=== PATIENT | female | born 1985 | race Caucasian/White ===

== ENCOUNTER 2017-05-20 18:07 | Emergency (ER) | payer BC ==
[~2017-05-20] VITALS: Ht 167.6 cm; Wt 71.0 kg
[~2017-05-20 18:07] MED LIST: PRENTAB26 PO
[2017-05-20 18:17] VITALS: TEMP 36.9; Ht 167.6 cm; Wt 71.0 kg
[2017-05-20] MEDS ORDERED: SODIUM CHLORIDE 0.9% 1000ML 1,000 ML IV STA (18:28)
[2017-05-20] MEDS ORDERED: KETOROLAC TROMETHAMINE 30 MG/ML VIAL IV STA (18:28)
--- NOTE | 2017-05-20 18:48 | EMERGENCY ROOM VISIT NOTE ---
History Report prepared by David: Travis Philippe Under the Supervision of: Dr. Prakash Fraser M.D. First contact with patient: 18:20 Chief Complaint: ARM PAIN Stated Complaint: L ARM PAIN History of Present Illness The patient is a 31 year old female who presents to the Emergency Room with complaints of intermittent chest pain starting this morning around 1000 this morning and arm pain starting around 1630. She states that the chest pressure would last a few minutes, and then it would go away for around a half hour, and she notes that she has been very anxious today. She states that around 1630 she had a jolt down her arm, and after that she has been having some left arm pain and tingling. She states that the pain started while she was just driving. The patient denies any shortness of breath, fever, chills, cough, congestion, nausea , and vomiting. She states that she does not have any active medical problems, and she is currently on control. She denies any smoking, recent long plane rides, recent surgery, or leg swelling. The patient does not use drugs, drink alcohol, she is not , and her last period was two weeks ago. The patient has a family history of blood clots. Source of History: patient Onset: 1000 Position: chest, arm (left) Quality: pressure Timing: intermittent Associated Symptoms: No fevers, No chills, No cough, No SOB, No nausea, No vomiting Review of Systems See HPI for pertinent positives and negatives. A total of ten systems were reviewed and were otherwise negative. Past Medical & Surgical Medical Problems: (1) Anxiety (2) control Family History Blood clots Social History Marital Status: Housing Status: lives with family Occupation Status: employed Current/Historical Medications Scheduled Control Pills ( Control Pills), 1 TAB PO DAILY Allergies Coded Allergies: Amoxicillin (Verified Allergy, RASH, 05/18/10) Physical Exam Vital Signs Date Time Temp Pulse Resp B/P (MAP) Pulse Ox O2 Delivery O2 Flow Rate FiO2 05/20/17 20:26 91 18 137/88 99 05/20/17 19:04 88 05/20/17 19:03 91 16 150/92 98 Room Air 05/20/17 19:02 97 Room Air 05/20/17 18:17 36.9 104 16 172/92 99 Room Air Physical Exam GENERAL: Awake, alert, well-appearing, in no distress HENT: Normocephalic, atraumatic. Oropharynx unremarkable. EYES: Normal conjunctiva. Sclera non-icteric. NECK: Supple. No nuchal rigidity. FROM. No JVD. RESPIRATORY: Clear to auscultation. CARDIAC: Regular rate, normal rhythm. Extremities warm and well perfused. Pulses equal. ABDOMEN: Soft, non-distended. No tenderness to palpation. No rebound or guarding. No masses. RECTAL: Deferred. MUSCULOSKELETAL: Chest examination reveals no tenderness. The back is symmetrical on inspection without obvious abnormality. There is no CVA tenderness to palpation. No joint edema. LOWER EXTREMITIES: Calves are equal size bilaterally and non-tender. No edema. No discoloration. NEURO: Normal sensorium. No sensory or motor deficits noted. SKIN: No rash or jaundice noted. Medical Decision & Procedures ER Provider Diagnostic Interpretation: Radiology results as stated below per my review and radiologist interpretation: CHEST ONE VIEW PORTABLE CLINICAL HISTORY: 31 years-old Female presenting with CHEST PAIN. TECHNIQUE: Portable upright AP view of the chest was obtained. COMPARISON: None. FINDINGS: Cardiomediastinal silhouette normal. Lungs and pleural spaces clear. Osseous structures normal. Upper abdomen normal. IMPRESSION: 1. No acute cardiopulmonary disease. Electronically signed by: Dru Sandoval M.D. 05/20/2017 7:00 PM Dictated Date/Time: 05/20/2017 6:59 PM Laboratory Results 05/20/17 19:00 Red Blood Count 4.59, Mean Corpuscular Volume 94.1, Mean Corpuscular Hemoglobin 32.7, Mean Corpuscular Hemoglobin Concent 34.7, Mean Platelet Volume 11.1, Neutrophils (%) (Auto) 76.5, Lymphocytes (%) (Auto) 17.2, Monocytes (%) (Auto) 5.3, Eosinophils (%) (Auto) 0.5, Basophils (%) (Auto) 0.3, Neutrophils # (Auto) 7.81, Lymphocytes # (Auto) 1.75, Monocytes # (Auto) 0.54, Eosinophils # (Auto) 0.05, Basophils # (Auto) 0.03 05/20/17 19:00 Test 05/20/17 19:00 White Blood Count 10.20 K/uL (4.8-10.8) Red Blood Count 4.59 M/uL (4.2-5.4) Hemoglobin 15.0 g/dL (12.0-16.0) Hematocrit 43.2 % (37-47) Mean Corpuscular Volume 94.1 fL (80-100) Mean Corpuscular Hemoglobin 32.7 pg (25-34) Mean Corpuscular Hemoglobin Concent 34.7 g/dl (32-36) Platelet Count 202 K/uL (130-400) Mean Platelet Volume 11.1 fL (7.4-10.4) Neutrophils (%) (Auto) 76.5 % Lymphocytes (%) (Auto) 17.2 % Monocytes (%) (Auto) 5.3 % Eosinophils (%) (Auto) 0.5 % Basophils (%) (Auto) 0.3 % Neutrophils # (Auto) 7.81 K/uL (1.4-6.5) Lymphocytes # (Auto) 1.75 K/uL (1.2-3.4) Monocytes # (Auto) 0.54 K/uL (0.11-0.59) Eosinophils # (Auto) 0.05 K/uL (0-0.5) Basophils # (Auto) 0.03 K/uL (0-0.2) RDW Standard Deviation 42.4 fL (36.4-46.3) RDW Coefficient of Variation 12.4 % (11.5-14.5) Immature Granulocyte % (Auto) 0.2 % Immature Granulocyte # (Auto) 0.02 K/uL (0.00-0.02) D-Dimer 460 ug/L FEU (0-500) Anion Gap 10.0 mmol/L (3-11) Est Creatinine Clear Calc Drug Dose 89.1 ml/min Estimated GFR () 105.8 Estimated GFR (Non- 91.3 BUN/Creatinine Ratio 13.7 (10-20) Calcium Level 9.3 mg/dl (8.5-10.1) Total Bilirubin 0.5 mg/dl (0.2-1) Direct Bilirubin 0.1 mg/dl (0-0.2) Aspartate Amino Transf (AST/SGOT) 14 U/L (15-37) Alanine Aminotransferase (ALT/SGPT) 20 U/L (12-78) Alkaline Phosphatase 64 U/L (45-117) Troponin I < 0.015 ng/ml (0-0.045) Total Protein 8.3 gm/dl (6.4-8.2) Albumin 3.9 gm/dl (3.4-5.0) Lipase 152 U/L (73-393) Human Chorionic Gonadotropin, Qual NEG (NEG) Laboratory results reviewed by me Medications Administered Medications (Trade) Dose Ordered Sig/Tasha Route Start Time Stop Time Status Last Admin Dose Admin Sodium Chloride 1,000 ml @ 999 mls/hr Q1H1M STAT IV 05/20/17 18:28 05/20/17 19:28 DC 05/20/17 19:01 999 MLS/HR Ketorolac Tromethamine (Toradol Inj) 30 mg NOW STAT IV 05/20/17 18:28 05/20/17 18:36 DC 05/20/17 19:01 30 MG ECG Indication: chest pain Rate (beats per minute): 86 Rhythm: normal sinus Findings: no acute ischemic change, other (normal axis) ED Course 1819: The patient was evaluated in room A3. A complete history and physical exam was performed. 1827: Toradol 30mg IV, Sodium Chloride 1000 ml @ 999 mls/hr IV 2017: I reevaluated the patient. Discussed results and discharge instructions: She verbalized understanding and agreement. The patient is ready for discharge. Medical Decision I reviewed the patient's past medical history, medications, and the nursing notes as described above. Differential Diagnoses include: pneumonia, bronchitis, ACS, PE, musculoskeletal strain, anxiety, panic attack He patient is a 31-year-old woman with a past medical history of anxiety as well as a family history and her father of unprovoked DVT/PE presents emergency department with acute onset chest pain that began this morning that has been intermittent for 2 minute episodes with very minute respite since onset and had subsequent evolution of her symptoms with arm pain that his been constant since 4 PM per history of present illness. Arrival the patient is relatively well- appearing, in no acute distress, afebrile, heart rate 100s but otherwise with stable vital signs. EKG unremarkable. Trop negative in the setting of > 6 hours of sx. Heart score 1 , low risk. ACS not likely. D-dimer negative, thus PE not likely. CXR negative. Labs otherwise unremarkable including WBC wnl. Patient feeling improved. Unclear cause of patient's sx at this time but could be 2/2 patient's anxiety. Findings and plan for follow-up reviewed with patient. Patient agreeable and d/c 'd per discharge instructions. Medication Reconcilliation Current Medication List: was personally reviewed by me Blood Pressure Screening Patient's blood pressure: Elevated blood pressure Blood pressure disposition: Elevated BP felt to be situational Impression Primary Impression: Arm pain, left Additional Impression: Chest pain of uncertain etiology Scribe Attestation The scribe's documentation has been prepared under my direction and personally reviewed by me in its entirety. I confirm that the note above accurately reflects all work, treatment, procedures, and medical decision making performed by me. Departure Information Dispostion Home / Self-Care Forms HOME CARE DOCUMENTATION FORM, IMPORTANT VISIT INFORMATION Patient Instructions ED Chest Pain Atypical Unkn Cause, My [facility] Additional Instructions Please follow up with your primary care physician in the next 1-3 days for re- evaluation. The cause of your symptoms is unclear at this time. Otherwise, your exam, EKG, chest xray, and lab results did not show signs of an emergent condition at this time. Return to the emergency department for worsening symptoms as described in the accompanying instructions. Problem Qualifiers
--- NOTE | 2017-05-20 19:01 | DIAGNOSTIC IMAGING REPORT ---
CHEST ONE VIEW PORTABLE CLINICAL HISTORY: 31 years-old Female presenting with CHEST PAIN. TECHNIQUE: Portable upright AP view of the chest was obtained. COMPARISON: None. FINDINGS: Cardiomediastinal silhouette normal. Lungs and pleural spaces clear. Osseous structures normal. Upper abdomen normal. IMPRESSION: 1. No acute cardiopulmonary disease. Electronically signed by: Dru Sandoval M.D. 05/20/2017 7:00 PM Dictated Date/Time: 05/20/2017 6:59 PM
[2017-05-20 19:02] VITALS: O2SAT 97
[2017-05-20] MEDS ORDERED: BCPILLS PO (19:18)
[2017-05-20 19:19] LABS: BASO % 0.3 %; BASO ABS # 0.03 K/uL (0-0.2); COMPLETE YES; EOS % 0.5 %; HEMATOCRIT 43.2 % (37-47); IG% 0.2 %; LYMPH % 17.2 %; LYMPH ABS # 1.75 K/uL (1.2-3.4); MEAN CELL VOLUME 94.1 fL (80-100); MEAN CORPUSCULAR HEMOGLOBIN 32.7 pg (25-34); MEAN CORPUSCULAR HGB CONC 34.7 g/dl (32-36); MEAN PLATELET VOLUME 11.1 fL (7.4-10.4); MONO % 5.3 %; NEUT % 76.5 %; PLATELET COUNT 202 K/uL (130-400); RED BLOOD COUNT 4.59 M/uL (4.2-5.4)
[2017-05-20 19:39] LABS: ALT/SGPT 20 U/L (12-78); BLOOD UREA NITROGEN 11 mg/dl (7-18); BUN/CREATININE RATIO 13.7 (10-20); CALCIUM 9.3 mg/dl (8.5-10.1); CARBON DIOXIDE 25 mmol/L (21-32); CHLORIDE 104 mmol/L (98-107); CREATININE 0.84 mg/dl (0.60-1.20); GLUCOSE 107 mg/dl (70-99); POTASSIUM 3.6 mmol/L (3.5-5.1); SODIUM 140 mmol/L (136-145)
[2017-05-20 19:44] LABS: ALKALINE PHOSPHATASE 64 U/L (45-117); AST/SGOT 14 U/L (15-37)
[2017-05-20 19:49] LABS: PREG INTERNAL NEGATIVE QC NEG CLEAR BACKGROUND; PREG INTERNAL POSITIVE QC POS CONTROL LINE
[2017-05-20 20:26] VITALS: BP 137/88; PULSE 91; O2SAT 99
== END 2017-05-20 20:25 | disposition home or self-care (01) ==
LOC: C.EDB 18:08 → C.EDA 20:25
DX: M79.602 Pain in left arm (principal); R07.9 Chest pain, unspecified; F41.9 Anxiety disorder, unspecified; Z79.3 Long term (current) use of hormonal contraceptives; Z83.2 Family history of diseases of the blood and blood-forming organs and certain disorders involving the immune mechanism

== ENCOUNTER 2020-07-25 09:38 | Inpatient (IN) ==
[2020-07-25] MEDS ORDERED: OXYTOCIN 30 UNITS/500 ML BAG IV PRN ×3 (10:54→21:00)
[2020-07-25] MEDS ORDERED: miSOPROStoL 50 MCG TAB PO SCH (11:00)
--- NOTE | 2020-07-25 11:01 | History & Physical Report ---
Date of Service July 25, 2020 Assessment & Plan (1) Pre-eclampsia affecting , antepartum: 34-year-old -0-0-1 at 38 weeks of gestation, presenting for IOL at term, elevated Blood pressure and proteinuria in office VSS Afebrile Asymptomatic FHR reassuring GBS pending, h/o GBS in 2012, received Cefazolin with no h/o reaction Cervix unfavorable, intolerance to VE Plan to admit, monitor, labs, PO Cytotec for cervical ripening All questions were answered Admission and Anticipated Discharge Date Admission Date: July 25, 2020 History of Present Illness Primary Care Provider: NO PCP Patient 34-year-old -0-0-1 at 38 weeks of gestation. She was in the office yesterday and her blood pressure was elevated and urine dip showed 2+ protein. She was sent to the lab for blood work and urine PC ratio. Blood work was normal including liver enzymes and platelets but urine PC ratio was elevated at 0.7. She was sent in today for induction of labor at term. She has no complaints, denies headache, change in her vision, epigastric or right upper quadrant pain, nausea, vomiting. She denies contractions, leakage of fluid or vaginal bleeding. She reports good movements. She denies symptoms of COVID nor recent contact. Allergies Allergy/AdvReac Type Severity Reaction Status Date / Time amoxicillin Allergy RASH Verified 05/18/10 22:44 nickel AdvReac Rash Verified 07/25/20 10:12 Home Medications Medication Instructions Recorded Confirmed Type Control Pills 1 tab PO DAILY #0 tab 05/20/17 History Patient History Medical History No known health problems Social History Preferred Language: Lithuanian Communication Ability: Effective Maxillofacial Prosthodontist Required: No Beliefs That Will Affect Care: None Current Living Situation: Spouse and Family Other Information That Helps Us Care for You: No Assistive Devices: None OB History Ectopic in 2009 FT in 2012 [employer] History No h/o STD's Review of Systems All systems reviewed & are unremarkable except as noted in HPI & below Physical Exam Constitutional: WD/WN, vitals as above well developed and well nourished Comfortable Gastrointestinal (Abdomen): normal bowel sounds, soft, nontender, no hepatosplenomegaly (Gravid) Genitourinary: normal external appearance OB Exam Abdomen: + vertex Manual OB Exam: + cervical dilation 2 cm, + cervical effacement 30% and + station high OB Exam Monitor Tracing: + external uterine monitor used and + category I Results & Data ([facility]) Vital Signs (Past 12 Hours) Vital Signs Temp Pulse Resp BP 07/25/20 10:55 75 133/89 07/25/20 10:41 90 130/88 07/25/20 10:26 85 131/110 H 07/25/20 10:10 36.9 C 85 20 134/89 07/25/20 09:49 93 H 133/87
[2020-07-25] MEDS: LACTATED RINGER'S 1,000 ML IV PRN ×3 (11:17→19:11)
[2020-07-25 11:18] LABS: Hematocrit (blood only) 41.1 % (37-47); Hemoglobin 14.3 g/dL (12.0-16.0); Mean Corpuscular Hemoglobin 33.6 pg (25-34); Mean Corpuscular Hgb Conc 34.8 g/dL (32-36); Mean Corpuscular Volume 96.5 fL (80-100); Mean Platelet Volume 12.4 fL (7.4-10.4); Platelet Count 164 K/uL (130-400); RDW Coefficient of Variation 13.3 % (11.5-14.5); RDW Standard Deviation 46.3 fL (36.4-46.3); Red Blood Count 4.26 M/uL (4.2-5.4); White Blood Count 13.26 K/uL (4.8-10.8)
[2020-07-25] MEDS ORDERED: BUTORPHANOL TARTRATE 1 MG/ML VIAL IV PRN (11:18)
[2020-07-25 11:45] LABS: Alanine Aminotransferase 27 U/L (12-78); Albumin Level 2.8 gm/dl (3.4-5.0); Aspartate Aminotransferase 20 U/L (15-37); Blood Urea Nitrogen 13 mg/dl (7-18); Calcium 9.5 mg/dl (8.5-10.1); Carbon Dioxide 21 mmol/L (21-32); Chloride 108 mmol/L (98-107); Est GFR (African American) 106.7; Est GFR (Non-African American) 92.1; Glucose 83 mg/dl (70-99); Potassium 3.9 mmol/L (3.5-5.1); Sodium 137 mmol/L (136-145)
[2020-07-25 11:48] LABS: Albumin Globulin Ratio 0.7 (0.9-2); Alkaline Phosphatase 171 U/L (45-117); Bilirubin,Total 0.3 mg/dl (0.2-1); Globulin 4.3 gm/dl (2.5-4.0); Total Protein 7.1 gm/dl (6.4-8.2)
[2020-07-25] MEDS: ceFAZolin 2000MG 2,000 MG/15 ML SYR IV SCH ×2 (14:34→19:00)
[2020-07-25] MEDS ORDERED: BUPIVACAINE 0.25% 30 ML VIAL ONE ×2 (15:03→19:25)
[2020-07-25] MEDS ORDERED: SODIUM CHLORIDE 0.9% INJ 10 ML VIAL ONE ×2 (15:03→19:25)
[2020-07-25] MEDS ORDERED: ePHEDrine sulfate 50 MG/ML AMP ONE (15:03)
[2020-07-25] MEDS ORDERED: fentaNYL citrate 100 MCG/2 ML VIAL ONE ×2 (15:04→19:25)
[2020-07-25] MEDS ORDERED: fentaNYL 2MCG/ML ROPIVACAINE 1.25MG/ML 100 ML BAG EPI ONE (15:04)
--- NOTE | 2020-07-25 15:07 | Anesthesiology Consultation ---
Date of Service July 25, 2020 Assessment & Plan Chart Review Chart Review: Acceptable Risk for Surgery, Patient NOT seen in Pre Admission Testing and Acceptable Risk for Labor Epidural Consults Requested none ASA ASA2 Proposed Anesthesia Anesthesia Type: Labor Epidural and CSE History Height/Weight Height: 5 ft 5 in Weight: 87.1 kg Allergies Allergy/AdvReac Type Severity Reaction Status Date / Time amoxicillin Allergy RASH Verified 05/18/10 22:44 nickel AdvReac Rash Verified 07/25/20 10:12 Medications Home Medications Medication Instructions Recorded Confirmed Last Taken PNV,calcium [id number] acid 1 tab PO DAILY 07/25/20 07/25/20 07/24/20 21:00 [ Vitamin Plus Low Iron] 1 Active Medications Generic Name Dose Route Start Last Admin Trade Name Freq PRN Reason Stop Dose Admin Cefazolin Sodium 2,000 mg in 15 mls @ 3.75 mls/min 07/25/20 11:00 07/25/20 14:34 Ancef 2000mg IV 08/04/20 10:59 3.75 mls/min Q8H DYLON Administration Lactated Ringer's 1,000 mls @ 150 mls/hr 07/25/20 10:54 07/25/20 14:37 Lr IV 07/27/20 10:53 999 mls/hr .Q6H40M PRN Infusion L&D Protocol Protocol Past Medical History Medical History No known health problems Exercise / Class Metabolic Activity II 4-5 Yardwork/Stairs/Walk up hill Past Surgical History Surgical History H/O wisdom tooth extraction (~07/2001) Past Anesthesia History No Hx of Anesthesia Complications and No Family Hx of Anesthesia Complications History of PONV No Hx of PONV and No Hx of Motion Sickness Social History Smoking Status: Never smoker Do You Dip or Chew Tobacco: No Hx Alcohol Use: No Hx Substance Use: No substance use type: does not use Physical Exam Vital Signs Last Vital Signs Temp 36.8 C 07/25/20 14:13 Pulse 76 07/25/20 14:11 Resp 20 07/25/20 14:13 BP 135/74 07/25/20 14:11 Testing Laboratory Results 07/25/20 11:06 07/25/20 11:06
[2020-07-25] MEDS ORDERED: PROMETHAZINE HCL 25 MG in SODIUM CHLORIDE 0.9% 50 ML IV PRN (15:44)
[2020-07-25] MEDS ORDERED: ePHEDrine sulfate 50 MG/ML AMP IV PRN (15:44)
[2020-07-25] MEDS ORDERED: diphenhydrAMINE 50 MG/ML VIAL IV PRN (15:44)
[2020-07-25] MEDS ORDERED: ONDANSETRON INJ 2 MG/ML 2 ML VIAL IV PRN (15:44)
[2020-07-25] MEDS ORDERED: fentaNYL 2MCG/ML ROPIVACAINE 1.25MG/ML 100 ML BAG EPI PRN (15:44)
[2020-07-25] MEDS ORDERED: NALOXONE HCL 0.4 MG/1 ML VIAL/CARP IV PRN (15:44)
[2020-07-25] MEDS ORDERED: NALOXONE HCL 1 MG in SODIUM CHLORIDE 0.9% 1000ML 1,000 ML IV PRN (15:44)
--- NOTE | 2020-07-25 16:10 | Obstetrical Progress Note ---
Date of Service July 25, 2020 Assessment & Plan Admission and Anticipated Discharge Date Admission Date: July 25, 2020 Subjective Patient is reevaluated She received PO Cytotec ay 1115 and SROM ed 14 15, clear Received epidural and comfortable now VE; 3-4 cm/ 60%/ -2, anterior fontanelle at 1 o'clock position FHR categ I [place]: ctx q 3-5 min Labs normal Continue to monitor closely Augment with low dose Pitocin Lab Results 07/25/20 07/25/20 07/25/20 Range/Units 11:03 11:03 11:06 WBC 13.26 H (4.8-10.8) K/uL RBC 4.26 (4.2-5.4) M/uL Hgb 14.3 (12.0-16.0) g/dL Hct 41.1 (37-47) % MCV 96.5 (80-100) fL MCH 33.6 (25-34) pg MCHC 34.8 (32-36) g/dL RDW Std Deviation 46.3 (36.4-46.3) fL RDW Coeff of Tushar 13.3 (11.5-14.5) % Plt Count 164 (130-400) K/uL MPV 12.4 H (7.4-10.4) fL Sodium (136-145) mmol/L Potassium (3.5-5.1) mmol/L Chloride (98-107) mmol/L Carbon Dioxide (21-32) mmol/L Anion Gap (3-11) BUN (7-18) mg/dl Creatinine (0.6-1.2) mg/dl Est Cr Clr Drug Dosing Est GFR ( Amer) Est GFR (Non-Af Amer) BUN/Creatinine Ratio (10-20) Glucose (70-99) mg/dl Calcium (8.5-10.1) mg/dl Total Bilirubin (0.2-1) mg/dl AST (15-37) U/L ALT (12-78) U/L Alkaline Phosphatase (45-117) U/L Total Protein (6.4-8.2) gm/dl Albumin (3.4-5.0) gm/dl Globulin (2.5-4.0) gm/dl Albumin/Globulin Ratio (0.9-2) COVID-19 Eval [facility] SARS-CoV-2, RNA, NAAT NEGATIVE (NEGATIVE) 07/25/20 Range/Units 11:06 WBC (4.8-10.8) K/uL RBC (4.2-5.4) M/uL Hgb (12.0-16.0) g/dL Hct (37-47) % MCV (80-100) fL MCH (25-34) pg MCHC (32-36) g/dL RDW Std Deviation (36.4-46.3) fL RDW Coeff of Tushar (11.5-14.5) % Plt Count (130-400) K/uL MPV (7.4-10.4) fL Sodium 137 (136-145) mmol/L Potassium 3.9 (3.5-5.1) mmol/L Chloride 108 H (98-107) mmol/L Carbon Dioxide 21 (21-32) mmol/L Anion Gap 8.0 (3-11) BUN 13 (7-18) mg/dl Creatinine 0.82 (0.6-1.2) mg/dl Est Cr Clr Drug Dosing Not Reportable Est GFR ( Amer) 106.7 Est GFR (Non-Af Amer) 92.1 BUN/Creatinine Ratio 16.0 (10-20) Glucose 83 (70-99) mg/dl Calcium 9.5 (8.5-10.1) mg/dl Total Bilirubin 0.3 (0.2-1) mg/dl AST 20 (15-37) U/L ALT 27 (12-78) U/L Alkaline Phosphatase 171 H (45-117) U/L Total Protein 7.1 (6.4-8.2) gm/dl Albumin 2.8 L (3.4-5.0) gm/dl Globulin 4.3 H (2.5-4.0) gm/dl Albumin/Globulin Ratio 0.7 L (0.9-2) COVID-19 Eval Order SARS-CoV-2, RNA, NAAT (NEGATIVE) Results & Data ([facility]) Vital Signs (Past 12 Hours) Vital Signs Temp Pulse Resp BP Pulse Ox 07/25/20 16:05 79 97 07/25/20 16:01 75 116/58 L 07/25/20 16:00 83 98 07/25/20 15:55 76 112/58 L 98 07/25/20 15:50 85 97 07/25/20 15:45 89 97 07/25/20 15:44 80 119/55 L 07/25/20 15:43 82 118/60 07/25/20 15:40 89 125/61 98 07/25/20 15:36 82 138/75 07/25/20 15:35 89 134/85 98 07/25/20 15:30 89 99 07/25/20 15:29 93 H 150/85 H 07/25/20 15:25 100 H 153/81 H 100 07/25/20 15:21 93 H 186/79 H 07/25/20 15:20 97 H 100 07/25/20 14:13 36.8 C 20 07/25/20 14:11 76 135/74 07/25/20 13:09 36.8 C 73 18 142/85 H 07/25/20 11:57 76 135/91 07/25/20 11:26 75 20 123/82 07/25/20 10:55 75 133/89 07/25/20 10:41 90 130/88 07/25/20 10:26 85 131/110 H 07/25/20 10:10 36.9 C 85 20 134/89 07/25/20 09:49 93 H 133/87
--- NOTE | 2020-07-25 18:08 | Obstetrical Progress Note ---
Date of Service July 25, 2020 Assessment & Plan Admission and Anticipated Discharge Date Admission Date: July 25, 2020 Subjective Patient is reevaluated VE; 5/ 60%/-2, FHR categ I [place] ctxs q 2-4 min, pitocin is at 8 miu/min Will empty bladder and change positions and continue to monitor closely Results & Data ([facility]) Vital Signs (Past 12 Hours) Vital Signs Temp Pulse Resp BP Pulse Ox 07/25/20 18:05 75 99 07/25/20 18:01 72 127/79 07/25/20 18:00 75 99 07/25/20 17:57 73 92 07/25/20 17:55 73 100 07/25/20 17:50 60 100 07/25/20 17:45 64 127/70 100 07/25/20 17:42 72 91 07/25/20 17:40 66 99 07/25/20 17:35 66 07/25/20 17:30 71 132/68 100 07/25/20 17:28 81 92 07/25/20 17:25 73 99 07/25/20 17:20 73 100 07/25/20 17:16 75 123/74 07/25/20 17:15 76 99 07/25/20 17:10 72 100 07/25/20 17:05 65 100 07/25/20 17:00 76 116/61 100 07/25/20 16:55 69 99 07/25/20 16:50 65 100 07/25/20 16:45 63 111/58 L 100 07/25/20 16:40 65 99 07/25/20 16:35 68 99 07/25/20 16:31 69 112/67 07/25/20 16:30 72 99 07/25/20 16:25 76 98 07/25/20 16:20 66 98 07/25/20 16:16 76 126/59 L 07/25/20 16:15 36.7 C 75 18 98 07/25/20 16:10 77 98 07/25/20 16:05 79 97 07/25/20 16:01 75 116/58 L 07/25/20 16:00 83 98 07/25/20 15:55 76 112/58 L 98 07/25/20 15:50 85 97 07/25/20 15:45 89 97 07/25/20 15:44 80 119/55 L 07/25/20 15:43 82 118/60 07/25/20 15:40 89 125/61 98 07/25/20 15:36 82 138/75 07/25/20 15:35 89 134/85 98 07/25/20 15:30 89 99 07/25/20 15:29 93 H 150/85 H 07/25/20 15:25 100 H 153/81 H 100 07/25/20 15:21 93 H 186/79 H 07/25/20 15:20 97 H 100 07/25/20 14:13 36.8 C 20 07/25/20 14:11 76 135/74 07/25/20 13:09 36.8 C 73 18 142/85 H 07/25/20 11:57 76 135/91 07/25/20 11:26 75 20 123/82 07/25/20 10:55 75 133/89 07/25/20 10:41 90 130/88 07/25/20 10:26 85 131/110 H 07/25/20 10:10 36.9 C 85 20 134/89 07/25/20 09:49 93 H 133/87
--- NOTE | 2020-07-25 19:37 | Communication Note ---
Date of Service: July 25, 2020 Pt c/o pain 5+/10;At 193 pt epidural was bolused w/ 12 ml of 0.17% Bupivacaine + 100 mcgs fentanyl, using incremental aspirations and injections w/c were neg.;vital signs were stable.
[2020-07-25] MEDS ORDERED: MINERAL OIL 30 ML UDC ONE (20:22)
[2020-07-25] MEDS ORDERED: SILVER NITR/POTASSIUM NITRATE APPLICATOR ONE (20:48)
[2020-07-25] MEDS ORDERED: HYDROCORTISONE ACETATE 25 MG SUPP PR PRN (21:00)
[2020-07-25] MEDS ORDERED: DIPHTHERIA/TETANUS/PERTUSSIS 0.5 ML SYR/VIAL IM ONE (21:00)
[2020-07-25] MEDS ORDERED: miSOPROStoL 200 MCG TAB PR ONE (21:00)
[2020-07-25] MEDS ORDERED: SUPERCREAM 0.870% 15 GM JAR EXT PRN (21:00)
[2020-07-25] MEDS ORDERED: MEASLES, MUMPS & RUBELLA VIRUS VIAL SQ ONE (21:00)
[2020-07-25] MEDS: DOCUSATE SODIUM 100 MG CAP PO SCH (21:00)
[2020-07-25] MEDS ORDERED: BENZOCAINE 20% AER SPR 82.5 GM CAN EXT PRN (21:00)
[2020-07-25] MEDS ORDERED: bisacodyL 10 MG SUPP PR PRN (21:00)
[2020-07-25] MEDS ORDERED: oxyCODONE/ACETAMINOPHEN 5mg/325mg TAB PO PRN (21:00)
[2020-07-25] MEDS: IBUPROFEN 600 MG TAB PO PRN (23:14)
--- NOTE | 2020-07-25 23:29 | Delivery Summary ---
DATE OF OPERATION: 07/25/2020 TIME OF DELIVERY OF BABY: 20:29 p.m. DETAILS OF DELIVERY: The patient was found to be fully dilated and desired to push. She pushed for about 20 minutes and head was over a tight perineum. There was a scar tissue on the posterior fourchette skin, which was repaired from prior delivery and to avoid third-degree or perirectal injury, the scar tissue was incised with scissors, aiming towards the right mediolateral. Right after that, the head was delivered without difficulty, shoulders came right after and baby was handed off to the mother where mouth and nose were suctioned. Cord was clamped x2 and cut at 1 minute delay. Cord blood was obtained. Perineum and vagina were checked for lacerations. There was a second-degree perineal laceration, which was repaired with 2-0 Vicryl in a running locked fashion and skin in a subcuticular fashion. There were superficial scratch like lacerations, first degree on the 1st perineal area, close to perirectal skin. Those were repaired with 3-0 Vicryl with U-type sutures with 3-0 Vicryl on an SH needle. Excellent hemostasis was achieved. The patient had 2 condyloma versus skin tag like lesions on the perineal skin towards the right buttock perianal region. After verbal consent was obtained, those were removed with scalpel and the base skin was repaired with 3-0 Vicryl on SH needle. Excellent hemostasis was achieved. Placenta was found to be in the vagina, delivered spontaneous intact and complete. Placenta was examined to be complete and there was succenturiate lobe attached to the actual placenta. Uterus was explored and found to be empty. Lower segment was cleared of all clots and debris. Fundus was massaged and became firm. EBL was 300 mL. IV oxytocin, Pitocin was started and she was placed with 1000 mcg of rectal Cytotec and no complications happened. Baby was a viable female , Apgars 9/9, weight is 6 pounds, 2748 gr. Sponge instrument and needle count ws correct x2. No complications happened. I was present during whole procedure. I attest to the content of the Intraoperative Record and any orders documented therein. Any exceptions are noted below. KIMBERLYD
--- NOTE | 2020-07-26 02:55 | Anesthesia Procedure Note ---
Date of Service July 26, 2020 Anesthesia Post Epidural Note Vital Signs Vital Signs: Temp Pulse Resp BP Pulse Ox 37.3 C 82 16 142/100 H 97 07/25/20 23:45 07/25/20 23:45 07/25/20 23:45 07/25/20 23:45 07/25/20 23:45 Pain Intensity Left Abdomen: Pain Intensity: 5 Notes Mental Status: alert / awake / arousable Nausea / Vomiting: adequately controlled Pain: adequately controlled Airway Patency, RR, SpO2: stable & adequate BP & HR: stable & adequate Hydration State: stable & adequate Neuraxial Anesthesia: was administered and sensory block is resolving Anesthetic Complications: no major complications apparent Epidural: Removed without complications and With tip intact
[2020-07-26] MEDS: IBUPROFEN 600 MG TAB PO PRN ×3 (04:04→18:34)
[2020-07-26] MEDS ORDERED: miSOPROStoL 200 MCG TAB ONE (04:58)
[2020-07-26] MEDS: ceFAZolin 2000MG 2,000 MG/15 ML SYR IV SCH (05:09)
[2020-07-26] MEDS: ACETAMINOPHEN 325 MG TAB PO PRN ×2 (05:55→12:20)
[2020-07-26 06:20] LABS: Hematocrit (blood only) 37.8 % (37-47); Hemoglobin 12.7 g/dL (12.0-16.0); Mean Corpuscular Hemoglobin 32.6 pg (25-34); Mean Corpuscular Hgb Conc 33.6 g/dL (32-36); Mean Corpuscular Volume 97.2 fL (80-100); Mean Platelet Volume 12.7 fL (7.4-10.4); Platelet Count 138 K/uL (130-400); RDW Coefficient of Variation 13.3 % (11.5-14.5); RDW Standard Deviation 46.8 fL (36.4-46.3); Red Blood Count 3.89 M/uL (4.2-5.4); White Blood Count 17.83 K/uL (4.8-10.8)
[2020-07-26] MEDS: FERROUS SULFATE 325 MG TAB PO SCH (08:09)
[2020-07-26] MEDS: DOCUSATE SODIUM 100 MG CAP PO SCH ×2 (08:09→19:45)
[2020-07-26] MEDS: PRENATAL VITAMIN 1 TAB PO SCH (08:10)
--- NOTE | 2020-07-26 08:34 | Obstetrical Progress Note ---
Date of Service July 26, 2020 Assessment & Plan Admission and Anticipated Discharge Date Admission Date: July 25, 2020 Physical Exam Constitutional: WD/WN, vitals as above well developed and comfortable fundus firm abdomen soft and non-tender no edema neg Shaheed's tent d/c in AM Results [facility] Data [facility]) Vital Signs (Past 12 Hours) Vital Signs Temp Pulse Pulse Resp BP BP Pulse Ox 07/26/20 04:00 36.7 C 93 H 16 135/92 97 07/25/20 23:45 37.3 C 82 16 142/100 H 97 07/25/20 23:15 37.3 C 82 18 142/100 H 97 07/25/20 22:52 90 168/71 H 07/25/20 22:30 36.9 C 18 07/25/20 22:25 82 97 07/25/20 22:23 78 148/70 H 07/25/20 22:20 79 97 07/25/20 22:15 80 99 07/25/20 22:10 82 99 07/25/20 22:08 78 148/70 H 07/25/20 22:05 81 100 07/25/20 22:00 87 98 07/25/20 21:55 97 H 97 07/25/20 21:53 100 H 155/70 H 92 07/25/20 21:50 88 99 07/25/20 21:47 86 139/69 07/25/20 21:45 36.9 C 95 H 18 139/69 98 07/25/20 21:40 88 152/70 H 99 07/25/20 21:35 89 100 07/25/20 21:30 65 18 100 07/25/20 21:25 92 H 100 07/25/20 21:20 97 H 100 07/25/20 21:15 92 H 18 100 07/25/20 21:10 101 H 99 07/25/20 21:06 100 H 130/79 07/25/20 21:05 87 99 07/25/20 21:02 80 135/75 07/25/20 21:00 90 18 99 07/25/20 20:55 81 99 07/25/20 20:53 83 125/67 07/25/20 20:50 86 97 07/25/20 20:45 83 98 07/25/20 20:41 86 144/70 H 07/25/20 20:40 82 97 07/25/20 20:38 98 H 111/66 07/25/20 20:35 92 H 123/77 98
[2020-07-26] MEDS ORDERED: bisacodyL 5 MG TABEC PO SCH (20:00)
[2020-07-27] MEDS: ACETAMINOPHEN 325 MG TAB PO PRN ×2 (05:34→11:47)
[2020-07-27 06:18] LABS: Hematocrit (blood only) 39.6 % (37-47); Hemoglobin 13.4 g/dL (12.0-16.0)
[2020-07-27] MEDS: PRENATAL VITAMIN 1 TAB PO SCH (08:05)
[2020-07-27] MEDS: FERROUS SULFATE 325 MG TAB PO SCH (08:05)
[2020-07-27] MEDS: DOCUSATE SODIUM 100 MG CAP PO SCH (08:05)
[2020-07-27 08:29] LABS: Basophils # (auto) 0.02 K/uL (0-0.2); Basophils % (auto) 0.1 %; Eosinophils # (auto) 0.14 K/uL (0-0.5); Eosinophils % (auto) 0.8 %; Hematocrit (blood only) 38.2 % (37-47); Hemoglobin 12.8 g/dL (12.0-16.0); Immature Granulocytes # (auto) 0.07 K/uL (0.00-0.02); Immature Granulocytes % (auto) 0.4 %; Lymphocytes # (auto) 3.04 K/uL (1.2-3.4); Lymphocytes % (auto) 17.9 %; Mean Corpuscular Hemoglobin 32.9 pg (25-34); Mean Corpuscular Hgb Conc 33.5 g/dL (32-36); Mean Corpuscular Volume 98.2 fL (80-100); Mean Platelet Volume 11.5 fL (7.4-10.4); Monocytes # (auto) 0.96 K/uL (0.11-0.59); Monocytes % (auto) 5.7 %; Neutrophils # (auto) 12.73 K/uL (1.4-6.5); Neutrophils % (auto) 75.1 %; Platelet Count 136 K/uL (130-400); RDW Coefficient of Variation 13.4 % (11.5-14.5); Red Blood Count 3.89 M/uL (4.2-5.4); White Blood Count 16.96 K/uL (4.8-10.8)
[2020-07-27 08:49] LABS: Albumin Level 2.5 gm/dl (3.4-5.0); BUN Creatinine Ratio 12.4 (10-20); Calcium 9.2 mg/dl (8.5-10.1); Creatinine Clr Calc Pharmacy 99.7 ml/min; Est GFR (African American) 102.2; Est GFR (Non-African American) 88.2; Potassium 3.7 mmol/L (3.5-5.1)
[2020-07-27 08:52] LABS: Albumin Globulin Ratio 0.6 (0.9-2); Bilirubin,Total 0.3 mg/dl (0.2-1); Globulin 4.2 gm/dl (2.5-4.0); Total Protein 6.7 gm/dl (6.4-8.2)
--- NOTE | 2020-07-27 09:47 | Obstetrical Progress Note ---
Date of Service July 27, 2020 Assessment & Plan Admission and Anticipated Discharge Date Admission Date: July 25, 2020 Subjective Patient is seen and examined. She feels well, no complaints. Ambulating without dizziness Voiding without difficulty Tolerating regular diet with out N&V Bleeding is minimal No SEPULVEDA/ Change in vision/fever/ chills/ CP/ SOB/ N&V/ Leg pain Bottle feeding without problems Lab Results 07/25/20 07/25/20 07/25/20 Range/Units 11:03 11:03 11:06 WBC 13.26 H (4.8-10.8) K/uL RBC 4.26 (4.2-5.4) M/uL Hgb 14.3 (12.0-16.0) g/dL Hct 41.1 (37-47) % MCV 96.5 (80-100) fL MCH 33.6 (25-34) pg MCHC 34.8 (32-36) g/dL RDW Std Deviation 46.3 (36.4-46.3) fL RDW Coeff of Tushar 13.3 (11.5-14.5) % Plt Count 164 (130-400) K/uL MPV 12.4 H (7.4-10.4) fL Immature Gran % (Auto) % Neut % (Auto) % Lymph % (Auto) % [place] % (Auto) % Eos % (Auto) % Baso % (Auto) % Neut # (Auto) (1.4-6.5) K/uL Lymph # (Auto) (1.2-3.4) K/uL [place] # (Auto) (0.11-0.59) K/uL Eos # (Auto) (0-0.5) K/uL Baso # (Auto) (0-0.2) K/uL Immature Gran # (Auto) (0.00-0.02) K/uL Sodium (136-145) mmol/L Potassium (3.5-5.1) mmol/L Chloride (98-107) mmol/L Carbon Dioxide (21-32) mmol/L Anion Gap (3-11) BUN (7-18) mg/dl Creatinine (0.6-1.2) mg/dl Est Cr Clr Drug Dosing Est GFR ( Amer) Est GFR (Non-Af Amer) BUN/Creatinine Ratio (10-20) Glucose (70-99) mg/dl Calcium (8.5-10.1) mg/dl Total Bilirubin (0.2-1) mg/dl AST (15-37) U/L ALT (12-78) U/L Alkaline Phosphatase (45-117) U/L Total Protein (6.4-8.2) gm/dl Albumin (3.4-5.0) gm/dl Globulin (2.5-4.0) gm/dl Albumin/Globulin Ratio (0.9-2) COVID-19 Eval Order Covid19 [facility] SARS-CoV-2, RNA, NAAT NEGATIVE (NEGATIVE) 07/25/20 07/26/20 07/27/20 Range/Units 11:06 05:39 06:06 WBC 17.83 H (4.8-10.8) K/uL RBC 3.89 L (4.2-5.4) M/uL Hgb 12.7 13.4 (12.0-16.0) g/dL Hct 37.8 39.6 (37-47) % MCV 97.2 (80-100) fL MCH 32.6 (25-34) pg MCHC 33.6 (32-36) g/dL RDW Std Deviation 46.8 H (36.4-46.3) fL RDW Coeff of Tushar 13.3 (11.5-14.5) % Plt Count 138 (130-400) K/uL MPV 12.7 H (7.4-10.4) fL Immature Gran % (Auto) % Neut % (Auto) % Lymph % (Auto) % [place] % (Auto) % Eos % (Auto) % Baso % (Auto) % Neut # (Auto) (1.4-6.5) K/uL Lymph # (Auto) (1.2-3.4) K/uL [place] # (Auto) (0.11-0.59) K/uL Eos # (Auto) (0-0.5) K/uL Baso # (Auto) (0-0.2) K/uL Immature Gran # (Auto) (0.00-0.02) K/uL Sodium 137 (136-145) mmol/L Potassium 3.9 (3.5-5.1) mmol/L Chloride 108 H (98-107) mmol/L Carbon Dioxide 21 (21-32) mmol/L Anion Gap 8.0 (3-11) BUN 13 (7-18) mg/dl Creatinine 0.82 (0.6-1.2) mg/dl Est Cr Clr Drug Dosing Not Reportable Est GFR ( Amer) 106.7 Est GFR (Non-Af Amer) 92.1 BUN/Creatinine Ratio 16.0 (10-20) Glucose 83 (70-99) mg/dl Calcium 9.5 (8.5-10.1) mg/dl Total Bilirubin 0.3 (0.2-1) mg/dl AST 20 (15-37) U/L ALT 27 (12-78) U/L Alkaline Phosphatase 171 H (45-117) U/L Total Protein 7.1 (6.4-8.2) gm/dl Albumin 2.8 L (3.4-5.0) gm/dl Globulin 4.3 H (2.5-4.0) gm/dl Albumin/Globulin Ratio 0.7 L (0.9-2) COVID-19 Eval Order SARS-CoV-2, RNA, NAAT (NEGATIVE) 07/27/20 07/27/20 Range/Units 08:19 08:19 WBC 16.96 H (4.8-10.8) K/uL RBC 3.89 L (4.2-5.4) M/uL Hgb 12.8 (12.0-16.0) g/dL Hct 38.2 (37-47) % MCV 98.2 (80-100) fL MCH 32.9 (25-34) pg MCHC 33.5 (32-36) g/dL RDW Std Deviation 48.0 H (36.4-46.3) fL RDW Coeff of Tushar 13.4 (11.5-14.5) % Plt Count 136 (130-400) K/uL MPV 11.5 H (7.4-10.4) fL Immature Gran % (Auto) 0.4 % Neut % (Auto) 75.1 % Lymph % (Auto) 17.9 % [place] % (Auto) 5.7 % Eos % (Auto) 0.8 % Baso % (Auto) 0.1 % Neut # (Auto) 12.73 H (1.4-6.5) K/uL Lymph # (Auto) 3.04 (1.2-3.4) K/uL [place] # (Auto) 0.96 H (0.11-0.59) K/uL Eos # (Auto) 0.14 (0-0.5) K/uL Baso # (Auto) 0.02 (0-0.2) K/uL Immature Gran # (Auto) 0.07 H (0.00-0.02) K/uL Sodium 138 (136-145) mmol/L Potassium 3.7 (3.5-5.1) mmol/L Chloride 106 (98-107) mmol/L Carbon Dioxide 28 (21-32) mmol/L Anion Gap 5.0 (3-11) BUN 11 (7-18) mg/dl Creatinine 0.85 (0.6-1.2) mg/dl Est Cr Clr Drug Dosing 99.7 Est GFR ( Amer) 102.2 Est GFR (Non-Af Amer) 88.2 BUN/Creatinine Ratio 12.4 (10-20) Glucose 89 (70-99) mg/dl Calcium 9.2 (8.5-10.1) mg/dl Total Bilirubin 0.3 (0.2-1) mg/dl AST 35 (15-37) U/L ALT 31 (12-78) U/L Alkaline Phosphatase 144 H (45-117) U/L Total Protein 6.7 (6.4-8.2) gm/dl Albumin 2.5 L (3.4-5.0) gm/dl Globulin 4.2 H (2.5-4.0) gm/dl Albumin/Globulin Ratio 0.6 L (0.9-2) COVID-19 Eval Order SARS-CoV-2, RNA, NAAT (NEGATIVE) Vital Signs Temp Pulse Resp BP Pulse Ox 07/27/20 07:18 36.7 C 73 20 147/94 H 96 07/26/20 22:30 36.4 C L 70 16 144/89 H 97 07/26/20 19:40 36.7 C 84 16 146/96 H 97 07/26/20 15:20 36.8 C 74 18 138/83 96 07/26/20 12:10 36.7 C 70 18 142/89 H 95 PE: General: Alert, orientedx3, NAD Abd: soft, NT, fundus firm, below Umbilicus Perineum intact, Lochia rubra minimal Ext; NT, no edema AP: 34 yo s/p , IOL for mild preeclampsia, ppd# 2 VSS Afebrile doing well Continue routine care and BP's All questions were answered D/C home this evening Results & Data ([facility]) Vital Signs (Past 12 Hours) Vital Signs Temp Pulse Resp BP Pulse Ox 07/27/20 07:18 36.7 C 73 20 147/94 H 96 07/26/20 22:30 36.4 C L 70 16 144/89 H 97
[2020-07-27] MEDS: IBUPROFEN 600 MG TAB PO PRN (16:32)
[2020-07-27] MEDS ORDERED: LABETALOL HCL 100 MG TAB PO SCH (16:45)
--- NOTE | 2020-07-27 16:48 | Obstetrical Progress Note ---
Date of Service July 27, 2020 Assessment & Plan Admission and Anticipated Discharge Date Admission Date: July 25, 2020 Subjective BP: Vital Signs Temp Pulse Resp BP Pulse Ox 07/27/20 11:50 36.6 C 73 18 150/92 H 97 07/27/20 07:18 36.7 C 73 20 147/94 H 96 Repeat 157/99 Asymptomatic Will start Labetalol and observe before d/c Results & Data ([facility]) Vital Signs (Past 12 Hours) Vital Signs Temp Pulse Resp BP Pulse Ox 07/27/20 11:50 36.6 C 73 18 150/92 H 97 07/27/20 07:18 36.7 C 73 20 147/94 H 96
== END 2020-07-27 20:30 | disposition home or self-care (01) | DRG 807 ==
LOC: 4S1 09:38 → 4S2 23:44